=== PATIENT | male | born 1985 | race Caucasian/White ===

== ENCOUNTER 2022-12-17 05:15 | Day surgery (SDC) | payer MEDICAID ==
[~2022-12-17] VITALS: Ht 167.6 cm; Wt 72.6 kg
[2022-12-17] MEDS ORDERED: fentaNYL CITRATE/PF 100 MCG/2 ML AMP ONE (07:57)
[2022-12-17] MEDS ORDERED: SEVOFLURANE 15 MIN GAS INH ONE (07:57)
[2022-12-17] MEDS ORDERED: NS IRRIG SOLN 1000 ML IR ONE (07:57)
[2022-12-17] MEDS ORDERED: GLYCOPYRROLATE 0.2 MG/ML VIAL ONE (07:57)
[2022-12-17] MEDS ORDERED: LIDOCAINE/EPI 1% 1:100000 20 ML VIAL ONE (07:57)
[2022-12-17] MEDS ORDERED: NS 1000 ML IV.SOLN IV ONE (07:57)
[2022-12-17] MEDS ORDERED: ONDANSETRON HCL 4 MG/2 ML VIAL ONE (07:57)
[2022-12-17] MEDS ORDERED: WATER FOR IRRIGATION,STERILE 1,000 ML IRRIG.SOLN IR ONE (07:57)
[2022-12-17] MEDS ORDERED: LR 1,000 ML IV.SOLN IV ONE (07:57)
[2022-12-17] MEDS ORDERED: ROCURONIUM BROMIDE 10 MG/ML (ZEMURON) ONE (07:57)
[2022-12-17] MEDS ORDERED: OXYMETAZOLINE HCL 0.05% NASAL SPRAY NS ONE (07:57)
[2022-12-17] MEDS ORDERED: SUCCINYLCHOLINE CHLORIDE 20 MG/ML(QUELICIN) ONE (07:57)
[2022-12-17] MEDS ORDERED: PROPOFOL 200MG/ 20ML VIAL (DIPRIVAN) IV ONE (07:57)
[2022-12-17] MEDS ORDERED: PHENYLEPHRINE HCL 10 MG/ML VIAL (NEOSYNEPHRINE) ONE (07:57)
[2022-12-17] MEDS ORDERED: HYDROmorphone 1 MG/ML INJ. CARTRIDGE IVP PRN (09:15)
[2022-12-17] MEDS ORDERED: METOCLOPRAMIDE HCL 10 MG/2 ML VIAL IVP PRN (09:15)
[2022-12-17] MEDS ORDERED: ONDANSETRON HCL 4 MG/2 ML VIAL IVP PRN (09:15)
[2022-12-17] MEDS ORDERED: ACETAMINOPHEN 325 MG TABLET PO ONE (09:15)
[2022-12-17 14:13] VITALS: BP_SYST 147
== END 2022-12-17 12:37 | disposition home or self-care (01) ==
LOC: SMU 05:15 → SDS 05:15
PROVIDERS: ATTEND Otolaryngology
DX: J34.2 Deviated nasal septum (principal); J34.89 Other specified disorders of nose and nasal sinuses; D38.5 Neoplasm of uncertain behavior of other respiratory organs; F20.9 Schizophrenia, unspecified; Z79.899 Other long term (current) drug therapy
CPT/HCPCS: 30520; 88304; 88311; 30140; 31240; J3490; J2405; J2370; J2704; J0330; J3010; J7120; J7030; 88305